=== PATIENT | female | born 1970 | race Caucasian/White ===

== ENCOUNTER → 2016-05-24 | Outpatient (CLI) | payer BC ==
--- NOTE | 2016-05-25 08:34 | MG ---
HISTORY: SCREENING Comparison: December 09, 2012 and December 29, 2013 FINDINGS: Bilateral CC and MLO projections of the right and left breast were obtained. Scattered fibroglandul ar tissue is seen to be present without suspicious interval change. No significant architectural di stortion, mass or clustered microcalcifications can be observed to suggest malignancy. No skin thic kening or nipple retraction is appreciated. No pathological lymphadenopathy can be identified. IMPRESSION: NO RADIOGRAPHIC EVIDENCE OF MALIGNANCY. ACR CATEGORY I - NEGATIVE EXAM. FOLLOW-UP EXAM 1 YEAR. Diagnostic CAD was utilized and reviewed. * 0 (ZERO) - ASSESSMENT INCOMPLETE; ADDITIONAL IMAGING IS NEEDED. * / (ONE) - NEGATIVE. * 2/II (TWO) - BENIGN FINDINGS. * 3/III (THREE) - PROBABLY BENIGN FINDING; SHORT INTERVAL FOLLOW-UP SUGGESTED. * 4/IV (FOUR) - SUSPICIOUS ABNORMALITY; BIOPSY SHOULD BE CONSIDERED. * 5/V (FIVE) - HIGHLY SUSPICIOUS OF MALIGNANCY; BIOPSY SHOULD BE PERFORMED. A NEGATIVE X-RAY REPORT SHOULD NOT DELAY BIOPSY IF A DOMINANT OR CLINICALLY SUSPICIOUS MASS IS PRESENT; 4 TO 8 PERCENT OF CANCERS ARE NOT IDENTIFIED BY X-RAY. A NEG ATIVE REPORT MAY REINFORCE THE CLINICAL IMPRESSION. ADENOSIS AND DENSE BREASTS MAY OBSCURE AN UNDER LYING NEOPLASM. Reported By:
== END ==
LOC: RAD 15:56
PROVIDERS: ATTEND Obstetrics & Gynecology
DX: Z12.31 Encounter for screening mammogram for malignant neoplasm of breast (principal)
CPT/HCPCS: 77067

== ENCOUNTER 2017-06-25 11:31 | Observation (INO) | payer BC ==
--- NOTE | 2017-06-25 11:43 | DR.H&P ---
H&P - History & Physical for Day of: H&P Date: 06/25/17 - Chief Complaint Chief Complaint: ABDOMINAL PAIN, N/V, STOMACH DISTENDED - History of Present Illness History of Present Illness: PT IS 46 WF DIRECT ADMIT FROM DR STARKS OFFICE WITH CO ABDOMINAL PAIN WITH N/V. PT STATES SHE CAN EAT 1-2 BITES OF ANY FOOD INCLUDING PO WATER AND WILL HAVE UPPER ABDOMINAL PAIN, THEN VOMITING. PT HAD NORMAL BM HIS AM WITHOUT CO BLOOD OR MUCOUS IN STOOL. PT STATES ABDOMINAL PAIN STARTED LAST WEEK ~SUNDAY. PT TAKING ZANTAC 300MG BID, PHENERGAN AND BENTYL WITHOUT RELIEF. PT HAD PMH OF OA, HTN. 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 - Family History Family Medical History: Diabetes Mellitus, Hypertension - Social History Does patient currently use any type of tobacco product: No Have you used tobacco products in the last 12 months: Yes Type of Tobacco Use: None Does any household member use tobacco: No Alcohol Use: None Drug Use: None - Review of Systems Constitutional: Chills, Malaise Eyes: No Symptoms Reported ENT: No Symptoms Reported Respiratory: No Symptoms Reported Gastrointestinal: Nausea, Vomiting, Abdominal Pain Genitourinary: No Symptoms Reported Musculoskeletal: Leg Pain Skin: No Symptoms Reported Neurological: No Symptoms Reported Oriented: Person Eyes: Normal Ear: Normal Nose: Normal Throat: Normal Respiratory: Clear Throughout : Normal Auscultation: Bowel Sounds: Decreased Tenderness: Diffuse, RUQ, LUQ, Epigastric Musculoskeletal: Right, Left, Knee, Back:Lumbar Psychiatric: Anxiety Affect: Anxious Speech Pattern: Clear, Appropriate - Assessment/Plan (1) Abdominal pain Status: Acute Plan: ADMIT, CBC CMP UA. AMYLASE AND LIPASE ON ADMISSION. PEPCID IV BID, PAIN AND NAUSEA CONTROL. CT ABD PELVIS WITH CONTRAST, HIDA SCAN Q AM. NPO UNTIL AFTER DIAGNOSTIC TEST. VERIFY AND RESUME HOME MEDS. (2) Nausea & vomiting Status: Acute (3) RUQ abdominal pain Status: Acute (4) Food intolerance Status: Acute (5) Hypertension Status: Acute
[2017-06-25 13:25] VITALS: BMI 28.9
[2017-06-25] MEDS ORDERED: MORPHINE SULFATE INJ 2 MG INJ IVP PRN (13:41)
[2017-06-25 14:15] LABS: BASOPHILS # (AUTO) 0.1 X10^3/uL (0.0-0.1); EOSINOPHILS # (AUTO) 1.3 x10^3/uL (0.0-0.2); EOSINOPHILS % (AUTO) 11.3 % (0.9-2.9); HEMOGLOBIN 11.9 g/dL (12.0-16.0); LYMPHOCYTES # (AUTO) 2.8 X10^3/uL (1.3-2.9); LYMPHOCYTES % (AUTO) 23.8 % (21.0-51.0); MEAN CORPUSCULAR HEMOGLOBIN 26.2 pg (27.0-34.0); MEAN CORPUSCULAR HGB CONC 33.1 g/dL (33.0-35.0); MEAN CORPUSCULAR VOLUME 79.1 fL (80.0-100.0); MEAN PLATELET VOLUME 7.4 fL (7.4-11.0); MONOCYTES # (AUTO) 0.7 x10^3/uL (0.3-0.8); MONOCYTES % (AUTO) 5.6 % (0.0-13.0); NEUTROPHILS # (AUTO) 6.9 x10^3/uL (2.2-4.8); NEUTROPHILS % (AUTO) 58.3 % (42.0-75.0); PLATELET COUNT 415 X10^3/uL (150.0-450.0); RED BLOOD COUNT 4.55 X10^6/uL (3.5-5.4); RED CELL DISTRIBUTION WIDTH 13.9 % (11.6-16.5); WHITE BLOOD COUNT 11.8 X10^3/uL (3.6-10.0)
[2017-06-25 14:25] LABS: ALANINE AMINOTRANSFERASE 26 Units/L (12-78); ALBUMIN 3.4 g/dL (3.4-5.0); ALKALINE PHOSPHATASE 91 Units/L (46-116); AMYLASE 62 Units/L (25-115); ASPARTATE AMINO TRANSFERASE 18 Units/L (15-37); BLOOD UREA NITROGEN 13 mg/dL (7-18); CALCIUM 9.3 mg/dL (8.5-10.1); CARBON DIOXIDE 28.3 mmol/L (21-32); CHLORIDE 104 mmol/L (98-107); LIPASE 184 Units/L (73-393); SODIUM 139 mmol/L (136-145); TOTAL PROTEIN 7.3 g/dL (6.4-8.2); eGFR BLACK RACES > 60 (>60); eGFR NON BLACK RACES > 60 (>60)
[2017-06-25] MEDS: PEPCID 20 MG IV PREMIX* 20 MG/50 ML BAG IV SCH ×2 (15:35→21:25)
[2017-06-25] MEDS: NS 1000 ML 1,000 ML IV SCH (15:35)
[2017-06-25 20:43] LABS: BILIRUBIN,URINE NEGATIVE (NEGATIVE); BLOOD/HEMOGLOBIN,URINE NEGATIVE (NEGATIVE); GLUCOSE, URINE NEGATIVE (NEGATIVE); KETONES,URINE NEGATIVE (NEGATIVE); LEUKOCYTE ESTERASE ,URINE NEGATIVE (NEGATIVE); NITRITES,URINE NEGATIVE (NEGATIVE); PROTEIN,URINE NEGATIVE (NEGATIVE); UROBILINOGEN,URINE NORMAL (NORMAL)
[2017-06-25 20:44] LABS: APPEARANCE,URINE CLEAR (CLEAR); COLOR,URINE YELLOW (YELLOW)
[2017-06-26 05:27] LABS: BASOPHILS # (AUTO) 0.1 X10^3/uL (0.0-0.1); BASOPHILS % (AUTO) 1.2 % (0.2-1.0); EOSINOPHILS # (AUTO) 1.4 x10^3/uL (0.0-0.2); EOSINOPHILS % (AUTO) 12.7 % (0.9-2.9); HEMATOCRIT 34.7 % (36.0-47.0); HEMOGLOBIN 11.8 g/dL (12.0-16.0); LYMPHOCYTES # (AUTO) 2.7 X10^3/uL (1.3-2.9); MEAN CORPUSCULAR VOLUME 79.3 fL (80.0-100.0); MEAN PLATELET VOLUME 7.4 fL (7.4-11.0); MONOCYTES # (AUTO) 0.7 x10^3/uL (0.3-0.8); NEUTROPHILS # (AUTO) 5.8 x10^3/uL (2.2-4.8); NEUTROPHILS % (AUTO) 54.1 % (42.0-75.0); PLATELET COUNT 402 X10^3/uL (150.0-450.0); RED BLOOD COUNT 4.38 X10^6/uL (3.5-5.4); RED CELL DISTRIBUTION WIDTH 13.8 % (11.6-16.5); WHITE BLOOD COUNT 10.7 X10^3/uL (3.6-10.0)
[2017-06-26 05:36] LABS: ALANINE AMINOTRANSFERASE 25 Units/L (12-78); ALBUMIN 2.8 g/dL (3.4-5.0); ALKALINE PHOSPHATASE 86 Units/L (46-116); ASPARTATE AMINO TRANSFERASE 19 Units/L (15-37); BLOOD UREA NITROGEN 12 mg/dL (7-18); CALCIUM 8.1 mg/dL (8.5-10.1); CARBON DIOXIDE 26.4 mmol/L (21-32); CHLORIDE 105 mmol/L (98-107); COR CA(FOR HYPOALB) 9.1 mg/dL (8.5-10.1); CREATININE 0.71 mg/dL (0.55-1.02); SODIUM 139 mmol/L (136-145); eGFR BLACK RACES > 60 (>60); eGFR NON BLACK RACES > 60 (>60)
[2017-06-26] MEDS: NS 1000 ML 1,000 ML IV SCH (05:47)
[2017-06-26] MEDS ORDERED: DECADRON INJ PRESERVATIVE-FREE IM ONE ×2 (07:11→19:24)
[2017-06-26] MEDS ORDERED: NS 100 ML IV 100 ML IV ONE ×2 (07:11→19:24)
[2017-06-26] MEDS ORDERED: ATIVAN INJ 2 MG VIAL ONE ×2 (07:12→19:25)
[2017-06-26] MEDS ORDERED: ZOFRAN INJ 4 MG VIAL ONE ×2 (07:12→19:24)
[2017-06-26] MEDS: ZOFRAN INJ 4 MG VIAL 16 MG, ATIVAN INJ 2 MG VIAL 1 MG, DECADRON INJ 10 MG in NS 50 ML I... IV PRN (07:19)
[2017-06-26] MEDS: PEPCID 20 MG IV PREMIX* 20 MG/50 ML BAG IV SCH ×2 (08:45→20:48)
--- NOTE | 2017-06-26 12:24 | US ---
HISTORY: Right upper quadrant pain Study: Right upper quadrant abdominal ultrasound Comparison: None Technique: Multiple images of the right upper quadrant were obtained. Findings: Diffuse increased echogenicity throughout the liver suggests fatty infiltration. Correlate clinically as other causes of hepatic disease may produce a similar appearance. No shadowing echogenic stones a re appreciated within the gallbladder. Gallbladder wall thickness is within normal limits measuring 2 .7 mm. The common bile duct is within normal limits in caliber measuring 4.3 mm. The right kidney diego sures 11.7 x 4.8 x 6.1 cm. The pancreas was incompletely visualized. IMPRESSION: 1. Sonographic findings of hepatic steatosis. Reported By:
[2017-06-26] MEDS: NORCO 10/325 TAB PO PRN ×2 (14:52→21:01)
[2017-06-27 05:28] LABS: BASOPHILS % (AUTO) 0.1 % (0.2-1.0); HEMATOCRIT 34.7 % (36.0-47.0); HEMOGLOBIN 11.7 g/dL (12.0-16.0); LYMPHOCYTES # (AUTO) 1.6 X10^3/uL (1.3-2.9); LYMPHOCYTES % (AUTO) 6.9 % (21.0-51.0); MEAN CORPUSCULAR HEMOGLOBIN 26.9 pg (27.0-34.0); MEAN CORPUSCULAR HGB CONC 33.6 g/dL (33.0-35.0); MEAN PLATELET VOLUME 7.7 fL (7.4-11.0); MONOCYTES # (AUTO) 0.6 x10^3/uL (0.3-0.8); MONOCYTES % (AUTO) 2.6 % (0.0-13.0); NEUTROPHILS # (AUTO) 20.9 x10^3/uL (2.2-4.8); NEUTROPHILS % (AUTO) 90.4 % (42.0-75.0); PLATELET COUNT 467 X10^3/uL (150.0-450.0); RED BLOOD COUNT 4.34 X10^6/uL (3.5-5.4); RED CELL DISTRIBUTION WIDTH 13.8 % (11.6-16.5); WHITE BLOOD COUNT 23.2 X10^3/uL (3.6-10.0)
[2017-06-27 05:41] LABS: ALANINE AMINOTRANSFERASE 27 Units/L (12-78); ALBUMIN 2.8 g/dL (3.4-5.0); ALKALINE PHOSPHATASE 91 Units/L (46-116); ASPARTATE AMINO TRANSFERASE 14 Units/L (15-37); BLOOD UREA NITROGEN 13 mg/dL (7-18); CARBON DIOXIDE 23.8 mmol/L (21-32); CHLORIDE 103 mmol/L (98-107); COR NA(FOR HYPERGLY) 138 mmol/L (136-145); CREATININE 0.83 mg/dL (0.55-1.02); SODIUM 136 mmol/L (136-145); TOTAL PROTEIN 6.8 g/dL (6.4-8.2); eGFR BLACK RACES > 60 (>60); eGFR NON BLACK RACES > 60 (>60)
[2017-06-27 06:08] LABS: BAND NEUTROPHILS % 2 % (0-10)
[2017-06-27 06:09] LABS: PLATELET MORPHOLOGY COMMENT NORMAL (NORMAL)
[2017-06-27] MEDS: PEPCID 20 MG IV PREMIX* 20 MG/50 ML BAG IV SCH ×2 (08:27→20:52)
[2017-06-27] MEDS: NS 1000 ML 1,000 ML IV SCH (08:33)
--- NOTE | 2017-06-27 11:39 | NM ---
HISTORY: 46-year-old female with right upper quadrant pain, nausea vomiting with tenderness. Study: Nuclear medicine HIDA scan with ejection fraction Comparison: Ultrasound of gallbladder 06/26/2017. Technique: Multiple scintigraphic images of the abdomen were obtained the intravenous administration of 5.3 mCi of technetium labeled Choletec. Following distention of the gallbladder with radiotracer, 8 oz of Ensure was administered orally. An estimated gallbladder ejection fraction was calculated based on the physiologic response of lyle me al. Findings: Homogeneous uptake of radiotracer is seen throughout the liver. The intrabiliary ductal system is ob served normally. The common hepatic and common bile duct grossly appear unremarkable with normal tatiana iary-bowel transit. The gallbladder is observed to fill normally. After the oral intake of fatty meal, a low gallbladder ejection fraction of 22% (normal > 35%) is obs erved. IMPRESSION: 1. Normal hepatobiliary imaging scan. 2. Low gallbladder ejection fraction of 22% (normal greater than 35%). Findings consistent with bilia ry dyskinesia. Consider surgical consultation. Reported By:
[2017-06-27] MEDS: ZOFRAN INJ 4 MG VIAL 16 MG, ATIVAN INJ 2 MG VIAL 1 MG, DECADRON INJ 10 MG in NS 50 ML I... IV PRN (12:06)
[2017-06-27] MEDS ORDERED: LR 1000 ML IV 1,000 ML IV ONE (14:19)
[2017-06-27] MEDS ORDERED: ANCEF 1 GM IV PREMIX* 1 GM/50 ML BAG IV ONE (14:19)
[2017-06-27 14:20] LABS: SERUM PREGNANCY TEST, QUAL NEGATIVE <10 mIU/mL
[2017-06-27] MEDS ORDERED: FENTANYL INJ 250 mcg ONE (14:54)
[2017-06-27] MEDS ORDERED: VERSED ONE (15:06)
[2017-06-27] MEDS ORDERED: ROBINUL ONE (15:06)
[2017-06-27] MEDS ORDERED: XYLOCAINE 1 % (PLAIN) ONE (15:06)
[2017-06-27] MEDS ORDERED: SUPRANE IN ONE (15:06)
[2017-06-27] MEDS ORDERED: NEOSTIGMINE INJ ONE (15:06)
[2017-06-27] MEDS ORDERED: LTA KIT LIDOCAINE 4% ONE (15:06)
[2017-06-27] MEDS ORDERED: NORCURON INJ 10 MG VIAL ONE (15:06)
[2017-06-27] MEDS ORDERED: DIPRIVAN VIAL ONE (15:06)
[2017-06-27] MEDS ORDERED: QUELICIN (OR ANECTINE) ONE (15:06)
[2017-06-27] MEDS ORDERED: ZOFRAN INJ 4 MG VIAL ONE (15:06)
[2017-06-27] MEDS ORDERED: NS IRRIGATION 1000 ML 1,000 ML IR ONE (15:12)
[2017-06-27] MEDS ORDERED: PHENERGAN INJ 25 MG IVP PRN (15:55)
[2017-06-27] MEDS ORDERED: DILAUDID INJ IVP PRN (15:55)
[2017-06-27] MEDS ORDERED: REGLAN INJ 10 MG VIAL IVP PRN (15:55)
[2017-06-27] MEDS ORDERED: BENADRYL INJ 50 MG VIAL IVP PRN (15:55)
[2017-06-27] MEDS ORDERED: ZOFRAN INJ 4 MG VIAL IVP PRN ×2 (15:55→16:27)
--- NOTE | 2017-06-27 16:00 | OR.GENERIC ---
Post-Op Note Generic - Post-Op Note Operative Report: diagnostic laparoscopy and lap Maria Elena was done ..finding distended GB with cholecystitis and adhesions .. liver ,stomach appendix and ileum all normal . on clear liquid and IV ATB for 24 h
[2017-06-27] MEDS: D5 1/2 NS 1000 ML 1,000 ML IV SCH (16:30)
[2017-06-27] MEDS: LEVAQUIN PREMIX IV 750 MG 750 MG/150 ML BAG IV SCH (16:30)
[2017-06-27] MEDS: DILAUDID INJ IVP PRN ×2 (17:38→21:39)
[2017-06-28] MEDS: D5 1/2 NS 1000 ML 1,000 ML IV SCH (02:05)
[2017-06-28] MEDS: DILAUDID INJ IVP PRN (04:32)
[2017-06-28 05:18] LABS: BASOPHILS # (AUTO) 0.1 X10^3/uL (0.0-0.1); BASOPHILS % (AUTO) 0.3 % (0.2-1.0); HEMATOCRIT 34.1 % (36.0-47.0); HEMOGLOBIN 11.5 g/dL (12.0-16.0); LYMPHOCYTES # (AUTO) 3.2 X10^3/uL (1.3-2.9); MEAN CORPUSCULAR HEMOGLOBIN 26.6 pg (27.0-34.0); MEAN CORPUSCULAR HGB CONC 33.7 g/dL (33.0-35.0); MEAN PLATELET VOLUME 7.4 fL (7.4-11.0); MONOCYTES # (AUTO) 1.5 x10^3/uL (0.3-0.8); MONOCYTES % (AUTO) 7.1 % (0.0-13.0); NEUTROPHILS # (AUTO) 16.6 x10^3/uL (2.2-4.8); NEUTROPHILS % (AUTO) 77.6 % (42.0-75.0); PLATELET COUNT 454 X10^3/uL (150.0-450.0); RED BLOOD COUNT 4.32 X10^6/uL (3.5-5.4); RED CELL DISTRIBUTION WIDTH 14.2 % (11.6-16.5); WHITE BLOOD COUNT 21.4 X10^3/uL (3.6-10.0)
[2017-06-28 05:22] LABS: BLOOD UREA NITROGEN 10 mg/dL (7-18); CARBON DIOXIDE 27.5 mmol/L (21-32); CHLORIDE 104 mmol/L (98-107); COR NA(FOR HYPERGLY) 138 mmol/L (136-145); CREATININE 0.82 mg/dL (0.55-1.02); SODIUM 137 mmol/L (136-145); eGFR BLACK RACES > 60 (>60); eGFR NON BLACK RACES > 60 (>60)
[2017-06-28 05:51] LABS: PLATELET MORPHOLOGY COMMENT NORMAL (NORMAL)
[2017-06-28] MEDS: PEPCID 20 MG IV PREMIX* 20 MG/50 ML BAG IV SCH (09:17)
[2017-06-28] MEDS: LEVAQUIN PREMIX IV 750 MG 750 MG/150 ML BAG IV SCH (09:17)
[2017-06-28] MEDS: NORCO 10/325 TAB PO PRN (09:18)
[2017-06-28 12:23] VITALS: BP 110/60
== END 2017-06-28 13:10 | disposition home or self-care (01) ==
LOC: UNDOADMOB 11:31 → MED/SURG 11:31
PROVIDERS: ADMIT Internal Medicine; ATTEND Internal Medicine
PROC: 0FT44ZZ Resection of Gallbladder, Percutaneous Endoscopic Approach (ICD-10-PCS; principal; 2017-06-27 14:30)
DX: K82.8 Other specified diseases of gallbladder (principal); K81.9 Cholecystitis, unspecified; R10.84 Generalized abdominal pain; R11.2 Nausea with vomiting, unspecified; R10.11 Right upper quadrant pain; I10 Essential (primary) hypertension; K90.49 Malabsorption due to intolerance, not elsewhere classified; K21.9 Gastro-esophageal reflux disease without esophagitis; M19.90 Unspecified osteoarthritis, unspecified site
CPT/HCPCS: 36415; 76705; 78227; 80048; 80053; 81003; 82150; 83690; 84703; 85025; 86677; 93005; 93010; A4216; A4222; A9537; S0028; G0378; J0330; J0690; J1100; J1170; J1956; J2001; J2060; J2250; J2405; J2710; J3010; J3490; J7042; J7120

== ENCOUNTER → 2017-07-05 | Outpatient (CLI) | payer BC ==
[2017-06-28 12:23] VITALS: BP 110/60
--- NOTE | 2017-07-05 14:29 | RAD ---
HISTORY: Hand pain Study: Right hand: Three views Comparison: None Findings: Carpal, metacarpal and phalangeal alignment is normal. Bony mineralization is adequate. Minimal deg enerative changes noted in the 1st metacarpophalangeal joint. The remainder of the interphalangeal j oints, carpometacarpal joints and metacarpophalangeal joints are normal. IMPRESSION: 1. Minimal degenerative change in the right hand felt to be on the basis of osteoarthritis. 2. No appreciable erosive changes present. Reported By:
--- NOTE | 2017-07-05 14:30 | RAD ---
Exam: Left hand three views History: 46-year-old female with left hand pain. Comparison: None Findings: Three views of the left hand radiographically normal with no acute bony abnormality or sign ificant degenerative change seen Impression: Negative views of left hand. Reported By:
== END ==
LOC: RAD 13:56
PROVIDERS: ATTEND Nurse Practitioner Family
DX: M25.541 Pain in joints of right hand (principal); M25.542 Pain in joints of left hand
CPT/HCPCS: 73130